=== PATIENT | male | born 1975 | race Caucasian/White ===

== ENCOUNTER 2020-09-16 10:02 | Emergency (ER) | payer OTHER, SELFPAY ==
--- NOTE | ~2020-09-16 | XR_ITS ---
XR foot RT min 3V 09/16/2020 10:25 INDICATION: Right foot pain PROCEDURE: 4 views right foot COMPARISON: No prior studies for comparison. FINDINGS: Fracture, dislocation or subluxation is not identified. Lisfranc joint intact. The soft tis sues appear within normal limits. No foreign bodies are identified. IMPRESSION: 1: NO ACUTE BONE OR JOINT ABNORMALITY IDENTIFIED. Reviewed, dictated and finalized at location B. 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
--- NOTE | 2020-09-16 10:18 | ED.LOWEXIN ---
HPI - Extremity Injury (Lower) General Chief Complaint: Extremity Injury, Lower Stated Complaint: right foot injury Time Seen by Provider: 09/16/20 10:18 Source: patient and RN notes reviewed History of Present Illness HPI Narrative: Patient is a 45-year-old male who presents the urgent care with complaints of right foot pain. 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 Patient states that the player had a soccer cleat on as well as himself. Patient states he immediately elevated and put ice on the foot which helped to decrease the immediate swelling. Patient states the pain radiates to the fourth and fifth digits of the right foot. Reports of increased pain with ambulation/weightbearing activity. Patient is also taking Advil for the pain with mild relief. No other acute complaints or injuries. No acute distress noted. Patient aware of the plan of care. Some parts of this dictation were generated by voice recognition software and may contain typographical and/or grammatical inaccuracies. Related Data Home Medications Medication Instructions Recorded Confirmed No Home Medications 09/16/20 09/16/20 Allergies Allergy/AdvReac Type Severity Reaction Status Date / Time No Known Allergies Allergy Verified 09/16/20 10:19 Review of Systems Review of Systems: Narrative: CONSTITUTIONAL: Denies fever, chills, or sweats. EYES: Denies visual changes, redness, or discharge. ENT: Denies rhinorrhea, congestion, sore throat, or otalgia. CARDIOVASCULAR: Denies chest pain, palpitations, or edema. RESPIRATORY: Denies cough or dyspnea. GASTROINTESTINAL: Denies abdominal pain, nausea, vomiting, or diarrhea. GENITOURINARY: Denies dysuria or hematuria. SKIN: Denies rash or itching. MUSCULOSKELETAL: Reports of right foot pain NEUROLOGIC: Denies headache, numbness, or weakness. All other systems reviewed are negative, except as documented in HPI. PMFSH Family History Family History (System 04/06/20 @ 10:37 by Caitlyn Medina) Father Diabetes mellitus Hypertension Family history of elevated blood lipids Mother Diabetes mellitus Hypertension Other Carcinoma of colon Social History Social History (System 04/06/20 @ 10:37 by Caitlyn Medina) Smoking status: Never smoker Smoking end date: 10/14/06 Alcohol intake: current Comments At the time of my signature, I reviewed and agree with the nursing past medical, surgical, social, and family history. There is no relevant family history pertinent to the patient complaint. Exam Narrative: Exam Narrative: GENERAL: This is a well-nourished, well-developed patient, in no apparent distress. HEAD: normocephalic, atraumatic. EYES: PERRL. Sclera clear/white. Vision is grossly intact. EARS: External ears normal NOSE: External nose normal with no obvious nasal discharge, nares without redness, no rhinorrhea. THROAT: Mucous membranes moist NECK: Neck supple SKIN: 0.25 cm subungual hematoma to the right great toe. Warm, intact with no suspicious lesions or rash, good texture and turgor. NEURO: awake, alert, and oriented to person, place and time. There were no obvious focal neurologic abnormalities. EXTREMITIES: Mild ecchymosis and very mild edema noted to the lateral aspect of the right foot with mild tenderness. Range of motion to right lower extremity within normal limits. Notable pain with complete weightbearing activity/ambulation. Capillary refill less than 2 seconds to right lower extremity with positive strong right pedal pulse. Course Vital Signs Vital signs: Vital Signs Temperature 98.1 F 09/16/20 10:19 Pulse Rate 90 09/16/20 10:19 Respiratory Rate 20 09/16/20 10:19 Blood Pressure 122/82 09/16/20 10:19 Pulse Oximetry 99 09/16/20 10:19 Temperature 98.1 F 09/16/20 10:19 Pulse Rate 90 09/16/20 10:19 Respiratory Rate 20 09/16/20 10:19 Blood Pressure 122/
[2020-09-16 10:19] VITALS: BP 122/82; PULSE 90; RESP 20; TEMP 36.7; O2SAT 99
== END 2020-09-16 10:43 | disposition home or self-care (01) ==
PROVIDERS: Emergency Provider Nurse Practitioner Family; PCP Family Medicine
DX: S90.31XA Contusion of right foot, initial encounter (principal); W51.XXXA Accidental striking against or bumped into by another person, initial encounter; Y93.66 Activity, soccer
CPT/HCPCS: 73630; 99213; G0463

== ENCOUNTER 2020-11-02 06:54 | Outpatient (NON) | payer OTHER, SELFPAY ==
[2020-11-02 21:57] LABS: SARS-CoV-2 RNA PCR Positive
== END 2020-11-02 06:55 ==
LOC: ANHCOVIDDT 06:59
PROVIDERS: PCP Family Medicine; Visit Provider Family Medicine
DX: U07.1 COVID-19 (principal)
CPT/HCPCS: C9803; U0003; U0005

== ENCOUNTER 2021-06-23 08:37 | Outpatient (CLI) | payer OTHER, SELFPAY ==
--- NOTE | 2021-06-23 08:51 | ECHO_ITS ---
Patient Info Name: Russell Conti Age: 45 years : 1975 Gender: Male Ht: 70 in Wt: 205 lbs BSA: 2.17 m2 HR: 68 bpm BP: 135 / 94 mmHg Heart Rhythm: Sinus Rhythm Exam Date: 06/23/2021 9:20 AM Exam Location: [facility] Patient Status: Outpatient Admit Date: 06/23/2021 Staff Ordering Physician: Catrachita Torres MD Quantitative Researcher: Yarelis Lema RDCS Attending Provider: Catrachita Torres MD Referring Physician: Melissa ZUÑIGA; Exam Type: CA echo doppler color flow Study Info Indications - FATIGUE, OTHER GENERAL SYMPTOMS AND SIGNS Complete two-dimensional, color flow and Doppler transthoracic echocardiogram is performed. Summary 1. Complete two-dimensional, color flow and Doppler transthoracic echocardiogram is performed. 2. Left ventricular chamber dimension is mildly enlarged. 3. Left ventricular systolic function is moderately reduced, estimated at 40-45%. 4. Left ventricular septal wall motion is abnormal with septal motion related to bundle branch block. 5. The left ventricular diastolic function is grade I diastolic dysfunction. 6. E/e' 7 is not elevated. 7. Left atrial chamber dimension is mildly enlarged. 8. There is trace mitral valve regurgitation. 9. There is trace tricuspid valve regurgitation. 10. No pulmonary hypertension, estimated pulmonary arterial systolic pressure is 18 mmHg. Left Ventricle E/e' 7 is not elevated. Left ventricular chamber dimension is mildly enlarged. Left ventricular systolic function is moderately reduced, estimated at 40-45%. Left ventricular septal wall motion is abnormal with septal motion related to bundle branch block. The left ventricular diastolic function is grade I diastolic dysfunction. Right Ventricle Right ventricular systolic function is normal and with normal TAPSE 2.2 cm. Right ventricular chamber dimension is normal. Left Atria Left atrial chamber dimension is mildly enlarged. Right Atria Right atrial chamber dimension is normal. Aortic Valve The aortic valve is trileaflet. There is no aortic valve stenosis. There is no aortic valve regurgitation. Pulmonic Valve There is no pulmonic regurgitation. Mitral Valve There is no mitral valve stenosis. There is trace mitral valve regurgitation. Tricuspid Valve There is trace tricuspid valve regurgitation. No pulmonary hypertension, estimated pulmonary arterial systolic pressure is 18 mmHg. Pericardium/Pleural There is no pericardial effusion. Inferior Vena Cava Normal inferior vena cava with >50% collapse upon inspiration consistent with normal right atrial pressure, 5 mmHg. Aorta The aortic root size at the sinus of Valsalva is normal. Left Ventricular Outflow Tract Name Value Normal LVOT 2D LVOT Diameter 2.1 cm LVOT Doppler LVOT Peak Gradient 2 mmHg LVOT Mean Gradient 1 mmHg LVOT VTI 17 cm LVOT VTI/AV VTI Ratio 0.7 LVOT Stroke Volume 61 ml LVOT CO 3.1 l/min
== END 2021-06-23 08:38 | disposition home or self-care (01) ==
PROVIDERS: PCP Family Medicine; Visit Provider Family Medicine
DX: R68.89 Other general symptoms and signs (principal); I51.7 Cardiomegaly; I44.7 Left bundle-branch block, unspecified; I51.9 Heart disease, unspecified; Z86.16 Personal history of COVID-19
CPT/HCPCS: 93306

== ENCOUNTER → 2021-09-25 11:47 | Outpatient (CLI) | payer OTHER, SELFPAY ==
--- NOTE | ~2021-09-25 | XR_ITS ---
XR knee RT min 4V 09/25/2021 12:13 Indication: Right knee pain Procedure: 4 views right knee Comparison: No prior studies for comparison. Findings: No fracture, subluxation or dislocation. No significant joint space narrowing. Small joint effusion. No foreign bodies. Impression: 1: Small joint effusion. Reviewed, dictated and finalized at location A. IAL EVENTS DIRECTOR Impression: 1: Small joint effusion.
== END ==
PROVIDERS: PCP Family Medicine; Visit Provider Physician Assistant
DX: M25.561 Pain in right knee (principal); M25.461 Effusion, right knee
CPT/HCPCS: 73564

== ENCOUNTER 2022-06-05 09:50 | Outpatient (CLI) | payer OTHER, SELFPAY ==
[2022-06-05 18:58] LABS: Basophils Percent Auto 0.7 % (0.2-1.2); Eosinophils Absolute Auto 0.3 K/mm3 (0-0.3); Eosinophils Percent Auto 4.2 % (0-4.4); Hematocrit 50.4 % (42.0-52.0); Hemoglobin 16.5 g/dL (14.0-18.0); Immature Granulocyte Absolute 0.01 K/mm3 (0.00-0.031); Immature Granulocyte Percent A 0.2 % (0-0.5); Lymphocytes Absolute Auto 2.32 K/mm3 (0.9-3.2); Lymphocytes Percent Auto 37.8 % (18.3-44.2); Mean Corpuscular HGB Conc 32.7 g/dl (32-36); Mean Corpuscular Hemoglobin 29.1 pg (26-34); Mean Corpuscular Volume 88.9 fl (80-100); Mean Platelet Volume 11.1 fl (7.4-10.4); Monocytes Absolute Auto 0.5 K/mm3 (0.1-0.6); Monocytes Percent Auto 8.8 % (2.6-8.5); Neutrophils Percent Auto 48.3 % (45.5-73.1); Platelet Count Result 201 k/mm3 (150-375); Red Blood Count 5.67 M/mm3 (4.6-6.20); White Blood Count 6.1 K/mm3 (4.5-10.0)
[2022-06-05 19:02] LABS: Alanine Aminotransferase 26 U/L (6-50); Albumin Level 4.6 g/dL (3.5-5.1); Alkaline Phosphatase 68 U/L (38-126); Anion Gap 8 mmol/L (8-16); Aspartate Amino Transferase 34 U/L (17-59); Bilirubin,Total 0.5 mg/dL (0.2-1.3); Blood Urea Nitrogen 16 mg/dL (9-20); Calcium 9.1 mg/dL (8.4-10.2); Carbon Dioxide 31 mmol/L (22-30); Chloride 98 mmol/L (98-107); Cholesterol 251 mg/dL (0-200); Estimated Glomerular Filt Rate > 60; Glucose 102 mg/dL (65-110); HDL Direct 36 mg/dL; Potassium 4.5 mmol/L (3.4-5.0); Sodium 137 mmol/L (137-145); Triglycerides 170 mg/dL (<150)
[2022-06-05 19:19] LABS: LDL Cholesterol Direct 143 mg/dL
== END 2022-06-05 09:51 | disposition home or self-care (01) ==
LOC: ANHGOSHLAB 09:53
PROVIDERS: PCP Family Medicine; Visit Provider Family Medicine
DX: Z00.00 Encounter for general adult medical examination without abnormal findings (principal)
CPT/HCPCS: 36415; 80053; 80061; 85025

== ENCOUNTER 2022-07-18 01:32 | Day surgery (SDC) | payer OTHER, SELFPAY ==
[2022-07-02 14:47] VITALS: BMI 29.7
--- NOTE | 2022-07-02 14:58 | PC.NURSE ---
PT INSTRUCTED NOT TO TAKE MAGNESIUM CITRATE PER BOWEL PREP INSTRUCTIONS DUE TO RECALL, PT STATES UNDERSTANDING.
[2022-07-18 06:24] VITALS: BP 112/68; PULSE 72; RESP 18; TEMP 36.4; O2SAT 100; BMI 29.7
[2022-07-18] MEDS: LACTATED RINGERS 1,000 ML 150 ML IV CONT (06:35)
--- NOTE | 2022-07-18 07:13 | P.PNAN_ITS ---
Anes - Initial Pre Proc Eval Procedure: Operation Date: 07/18/22 07:30 Proposed Procedures p Screening Colonoscopy - Bo Uribe MD Date/Time: 07/18/22 07:13 Surgeon: Bo Uribe MD Pre Op Diagnosis: family hx colon ca, neoplasm screening Patient Data Age: 46 Gender: M Height: 1.78 m Weight: 206 kg Last Vital Signs Temp 36.4 C L 07/18/22 06:24 Pulse 72 07/18/22 06:24 Resp 18 07/18/22 06:24 BP 112/68 07/18/22 06:24 Pulse Ox 100 07/18/22 06:24 O2 Del Method Room Air 07/18/22 06:24 Allergies Allergy/AdvReac Type Severity Reaction Status Date / Time No Known Allergies Allergy Verified 07/02/22 14:45 Home Medications Medication Instructions Recorded Confirmed Type lisinopril 20 mg tablet 20 mg PO DAILY 09/25/21 07/02/22 History metoprolol succinate 25 mg 12.5 mg PO DAILY 09/25/21 07/02/22 History tablet,extended release 24 hr omeprazole 40 mg capsule,delayed 40 mg PO DAILY #90 caps 06/05/22 07/02/22 Rx release loratadine 10 mg tablet (Claritin) 10 mg PO DAILY 07/02/22 07/02/22 History Patient hx anesthesia problems: none Family hx anesthesia problems: none Results Review: All pre-operative results and documents have been reviewed as part of the pre- operative evaluation. [facility], [facility] Past Medical History Medical History Actinic keratosis Allergic rhinitis Generalized anxiety disorder Lumbar sprain Personal history of tobacco use Syncope and collapse Traumatic tattoo Umbilical hernia without obstruction or gangrene Family History Family History Father Diabetes mellitus Hypertension Family history of elevated blood lipids Mother Diabetes mellitus Hypertension Other Carcinoma of colon Social History Social History (Updated 06/05/22 @ 09:18 by Catrachita Torres MD) Smoking status: Former smoker Smokeless tobacco user: chewing tobacco Smoking end date: 10/14/06 Additional smoking assessment comments: CHEWED TOBACCO X15 YEARS, QUIT 2009 Alcohol intake: current Drinks per week: 4 Substance use: never Substance use type: does not use Living arrangements: with family Spiritual care concerns: No Anes - Eval Final PreProcedure Day of Procedure 07/18/22 07:13 Patient weight: overweight Heart: regular rate and rhythm Lungs: clear to auscultation Airway: Mallampati scale class II Neurological: alert and oriented Last oral intake: >/= 8 hours ASA classification: III Emergent: no Anesthetic plan: proceed Anesthesia type and monitoring: general GIVS and standard monitoring Results Review: All pre-operative results and documents have been reviewed as part of the pre- operative evaluation. Informed Consent: The patient's anesthetic plan and its attendant risks and benefits were discussed with the patient/family/POA. Questions were solicited and answers prov ided to the satisfaction of the patient/family/POA.
--- NOTE | 2022-07-18 07:22 | PM.HPGS ---
History of Present Illness History of Present Illness Consent: Risks, benefits, and alternatives have been discussed and questions answered. Patient agrees to proceed with procedure. Chief complaint: family hx colon ca, neoplasm screening Narrative: Russell Conti Jr. is a 46 year old male here for first screening colonoscopy Review of Systems Constitutional: Constitutional: Denies headache(s) and Denies weakness Eyes: Eyes: Denies blurry vision ENT: Reports Normal hearing present, Denies headache(s) and Denies neck pain Cardiovascular: Cardiovascular: Denies chest pain and Denies dyspnea Respiratory: Respiratory: Denies dyspnea Gastrointestinal: Gastrointestinal: Reports no additional gastrointestinal complaints Genitourinary: Genitourinary: Denies dysuria Musculoskeletal: Musculoskeletal: Denies neck pain Integumentary/Breasts: Skin/Breast: Denies dry skin Neurologic: Reports Normal hearing present, Denies headache(s) and Denies weakness Psychiatric: Psychiatric: Denies anxiety Endocrine: Endocrine: Denies change in body appearance Hematologic/Lymphatic: Hematologic/Lymphatic: Denies easy bleeding Allergic/Immunologic: Allergic/Immunologic: Denies urticaria PMFSH Past Medical History Medical History (Updated 07/18/22 @ 07:22 by Bo Uribe MD) Actinic keratosis Allergic rhinitis Colon cancer screening Generalized anxiety disorder Lumbar sprain Personal history of tobacco use Syncope and collapse Traumatic tattoo Umbilical hernia without obstruction or gangrene Family History Family History Father Diabetes mellitus Hypertension Family history of elevated blood lipids Mother Diabetes mellitus Hypertension Other Carcinoma of colon Social History Social History (Updated 06/05/22 @ 09:18 by Catrachita Torres MD) Smoking status: Former smoker Smokeless tobacco user: chewing tobacco Smoking end date: 10/14/06 Additional smoking assessment comments: CHEWED TOBACCO X15 YEARS, QUIT 2009 Alcohol intake: current Drinks per week: 4 Substance use: never Substance use type: does not use Living arrangements: with family Spiritual care concerns: No Meds Home Medications and Allergies Home Medications Medication Instructions Recorded Confirmed Type lisinopril 20 mg tablet 20 mg PO DAILY 09/25/21 07/02/22 History metoprolol succinate 25 mg 12.5 mg PO DAILY 09/25/21 07/02/22 History tablet,extended release 24 hr omeprazole 40 mg capsule,delayed 40 mg PO DAILY #90 caps 06/05/22 07/02/22 Rx release loratadine 10 mg tablet (Claritin) 10 mg PO DAILY 07/02/22 07/02/22 History Allergies Allergy/AdvReac Type Severity Reaction Status Date / Time No Known Allergies Allergy Verified 07/02/22 14:45 Vital Signs Vital Signs - 24 hr 07/18/22 06:24 Temperature 97.5 F L Pulse Rate 72 Respiratory Rate 18 Blood Pressure 112/68 Pulse Oximetry 100 Oxygen Delivery Room Air Exam Const: General: comfortable and no acute distress HENMT: Face/Nose/Sinus: Normal nares present Eyes: General: appearance normal, both eyes and all related structures Neck: Neck: no JVD Resp: Auscultation: clear to auscultation bilaterally Cardio: Rate: regular rate Rhythm: regular rhythm GI: Inspection: non-distended GI Palp: Yes Soft to palpation Skin: General skin exam: normal color Neuro: General: gait normal Speech: normal speech Extrem: General: normal to inspection Psych: Mental Status: mental status grossly normal Assessment and Plan Assessment and plan (1) Colon cancer screening: Code(s): Z12.11 - Encounter for screening for malignant neoplasm of colon Status: Acute Assessment and Plan: colonoscopy
[2022-07-18 07:41] VITALS: BP 115/81; PULSE 100; RESP 23; O2SAT 97
[2022-07-18 07:51] VITALS: BP 112/78; PULSE 74; RESP 18; O2SAT 97
[2022-07-18 08:01] VITALS: BP 140/91; PULSE 75; RESP 20; O2SAT 100
== END 2022-07-18 08:10 | disposition home or self-care (01) ==
PROVIDERS: PCP Family Medicine; Visit Provider Internal Medicine Gastroenterology
PROC: 0DJD8ZZ Inspection of Lower Intestinal Tract, Via Natural or Artificial Opening Endoscopic (ICD-10-PCS; CPT 45378; principal; 2022-07-18 07:30)
DX: Z12.11 Encounter for screening for malignant neoplasm of colon (principal); Z80.0 Family history of malignant neoplasm of digestive organs; K64.8 Other hemorrhoids; K63.5 Polyp of colon; F41.1 Generalized anxiety disorder; L57.0 Actinic keratosis; Z87.891 Personal history of nicotine dependence
CPT/HCPCS: 45385; 88305; J2704; J7120

== ENCOUNTER 2022-07-31 11:33 | Emergency (ER) | payer OTHER, SELFPAY ==
[2022-07-31 12:05] VITALS: BP 124/76; PULSE 95; RESP 12; TEMP 36.6; O2SAT 98
--- NOTE | 2022-07-31 13:04 | ED.URI ---
HPI - URI/Sore Throat General Chief Complaint: Upper Respiratory Infection Stated Complaint: cough,nasal congestion Source: patient Mode of arrival: ambulatory Limitations: no limitations History of Present Illness HPI Narrative: This is a 46 year old male that comes in with a sore throat and had a fever last night , coughing and shortness of breath two negative COVID test very fatigue barely able to stay up yesterday due to exhaustion . He had to leave work early Related Data Home Medications Medication Instructions Recorded Confirmed lisinopril 20 mg tablet 20 mg PO DAILY 09/25/21 07/02/22 metoprolol succinate 25 mg 12.5 mg PO DAILY 09/25/21 07/02/22 tablet,extended release 24 hr loratadine 10 mg tablet (Claritin) 10 mg PO DAILY 07/02/22 07/02/22 Allergies Allergy/AdvReac Type Severity Reaction Status Date / Time No Known Allergies Allergy Verified 07/02/22 14:45 Review of Systems Review of Systems: cough congestion , headache and fatigue All systems reviewed & are unremarkable except as noted in HPI and below PMFSH Past Medical History Medical History Actinic keratosis Allergic rhinitis Colon cancer screening Generalized anxiety disorder Lumbar sprain Personal history of tobacco use Syncope and collapse Traumatic tattoo Umbilical hernia without obstruction or gangrene Family History Family History Father Diabetes mellitus Hypertension Family history of elevated blood lipids Mother Diabetes mellitus Hypertension Other Carcinoma of colon Social History Social History Smoking status: Former smoker Smokeless tobacco user: chewing tobacco Smoking end date: 10/14/06 Additional smoking assessment comments: CHEWED TOBACCO X15 YEARS, QUIT 2009 Alcohol intake: current Drinks per week: 4 Substance use: never Substance use type: does not use Spiritual care concerns: No Exam Narrative: GENERAL:Ill-appearing, well-nourished, and in no acute distress. HEAD:Normocephalic, atraumatic. EYES: PERRLA ENT: Nares clear, no rhinorrhea or epistaxis. Mucous membranes moist. Copious secretions. Erythema CHEST: Clear to diminished in the lower right lobe auscultation. No respiratory distress. HEART: Regular rate and rhythm. Normal peripheral pulses. ABDOMEN: Soft, nontender, nondistended, normal active bowel sounds. EXTREMITIES: Normal range of motion. No edema. SKIN: Warm, dry, no rash. NEURO: No focal deficits. Alert and oriented x3. Course Course Level of Care: Express Care Visit Vital Signs Vital signs: Vital Signs Temperature 97.9 F 07/31/22 12:05 Pulse Rate 95 07/31/22 12:05 Respiratory Rate 12 07/31/22 12:05 Blood Pressure 124/76 07/31/22 12:05 Pulse Oximetry 98 07/31/22 12:05 Oxygen Delivery Room Air 07/31/22 12:05 Temperature 97.9 F 07/31/22 12:05 Pulse Rate 95 07/31/22 12:05 Respiratory Rate 12 07/31/22 12:05 Blood Pressure 124/76 07/31/22 12:05 Pulse Oximetry 98 07/31/22 12:05 Oxygen Delivery Room Air 07/31/22 12:05 MDM - URI/Sore Throat Differential Diagnosis Differential diagnosis: Likely upper respiratory infection, otitis media, sinusitis, viral infection, bronchitis and influenza Lab Data Labs: Lab Results 07/31/22 Range/Units 12:36 POC SARS CoV-2 Ag Negative (Negative) Influenza A Screen Negative Reference Range: Negative Influenza B Screen Negative Reference Range: Negative Discharge Plan Discharge Clinical Impression: Upper respiratory infection, Viral infection Patient Disposition: Home, Self-Care Condition: Stable Instructions: Antibiotic Form, Pharyngitis (ED), Upper Respir
== END 2022-07-31 13:18 | disposition home or self-care (01) ==
PROVIDERS: Emergency Provider Nurse Practitioner Family; PCP Family Medicine
DX: J06.9 Acute upper respiratory infection, unspecified (principal); B34.9 Viral infection, unspecified; Z20.822 Contact with and (suspected) exposure to COVID-19; Z87.891 Personal history of nicotine dependence
CPT/HCPCS: 87426; 87804; 99213; C9803; G0463

== ENCOUNTER 2022-09-27 11:30 | Emergency (ER) | payer OTHER, SELFPAY ==
[2022-09-27 11:38] VITALS: BP 115/70; PULSE 89; RESP 18; TEMP 36.9; O2SAT 99
--- NOTE | 2022-09-27 11:57 | ED.URI ---
HPI - URI/Sore Throat General Chief Complaint: Upper Respiratory Infection Stated Complaint: flu like sx Time Seen by Provider: 09/27/22 11:40 Source: patient, RN notes reviewed and old records reviewed Mode of arrival: ambulatory Limitations: no limitations History of Present Illness HPI Narrative: 47-year-old presents to the [facility] with flu-like symptoms for 2 days. patient reports sinus drainage some sore throat cough. No known sick contacts Related Data Home Medications Medication Instructions Recorded Confirmed lisinopril 20 mg tablet 20 mg PO DAILY 09/25/21 09/27/22 metoprolol succinate 25 mg 12.5 mg PO DAILY 09/25/21 09/27/22 tablet,extended release 24 hr loratadine 10 mg tablet (Claritin) 10 mg PO DAILY 07/02/22 09/27/22 Allergies Allergy/AdvReac Type Severity Reaction Status Date / Time No Known Allergies Allergy Verified 09/27/22 11:51 Review of Systems Review of Systems: All systems reviewed & are unremarkable except as noted in HPI and below Constitutional: Constitutional: Reports as per HPI Eyes: Eyes: Reports no additional eye complaints ENT: Reports as per HPI and Reports sore throat Cardiovascular: Cardiovascular: Reports no additional cardiovascular complaints, Denies chest pain and Denies dyspnea Respiratory: Respiratory: Reports as per HPI, Reports no additional respiratory complaints, Denies chest congestion, Reports cough and Denies dyspnea Gastrointestinal: Gastrointestinal: Reports no additional gastrointestinal complaints, Denies abdominal pain, Denies nausea and Denies vomiting Musculoskeletal: Musculoskeletal: Reports no additional musculoskeletal complaints Integumentary/Breasts: Skin/Breast: Reports system reviewed and no additional complaints, except as docu Neurologic: Reports system reviewed and no additional complaints, except as documented Psychiatric: Psychiatric: Reports no additional psychiatric complaints Allergic/Immunologic: Allergic/Immunologic: Reports no additional allergic/immunologic complaints PMF Past Medical History Medical History Actinic keratosis Allergic rhinitis Colon cancer screening Generalized anxiety disorder Lumbar sprain Personal history of tobacco use Syncope and collapse Traumatic tattoo Umbilical hernia without obstruction or gangrene Family History Family History Father Diabetes mellitus Hypertension Family history of elevated blood lipids Mother Diabetes mellitus Hypertension Other Carcinoma of colon Social History Social History Smoking status: Former smoker Smokeless tobacco user: chewing tobacco Smoking end date: 10/14/06 Additional smoking assessment comments: CHEWED TOBACCO X15 YEARS, QUIT 2009 Alcohol intake: current Drinks per week: 4 Substance use: never Substance use type: does not use Spiritual care concerns: No Comments At the time of my signature, I reviewed and agree with the nursing past medical, surgical, social, and family history. There is no relevant family history pertinent to the patient complaint. Exam Const: General: cooperative, healthy appearing, comfortable, no acute distress, well developed, alert and well nourished Nutritional Appearance: well nourished Orientation/consciousness: patient oriented x3 Limitations: no limitations HENMT: Head: normal to inspection Ears: hearing grossly normal bilaterally and external ears normal Face/Nose/Sinus: Normal external nose present, Normal nares present, Normal nasal mucous membranes and turbinates present and normal facial exam Face and sinus: normal facial exam Mouth: Yes Normal oral and palatal mucosa present, Yes lip normal and Yes moist mucous membranes Throat: posterior oropharynx normal, uvula midline and postnasal drainage Eyes: General: appearance n
== END 2022-09-27 12:29 | disposition home or self-care (01) ==
PROVIDERS: Emergency Provider Nurse Practitioner; PCP Family Medicine
DX: J06.9 Acute upper respiratory infection, unspecified (principal); Z20.822 Contact with and (suspected) exposure to COVID-19; Z87.891 Personal history of nicotine dependence
CPT/HCPCS: 87426; 87804; 99213; C9803; G0463

== ENCOUNTER 2023-06-06 09:52 | Outpatient (CLI) | payer OTHER, SELFPAY ==
[2023-06-06 17:11] LABS: Alanine Aminotransferase 52 U/L (6-50); Albumin Level 4.4 g/dL (3.5-5.1); Alkaline Phosphatase 67 U/L (38-126); Anion Gap 4 mmol/L (8-16); Aspartate Amino Transferase 36 U/L (17-59); Bilirubin,Total 0.7 mg/dL (0.2-1.3); Blood Urea Nitrogen 14 mg/dL (9-20); Calcium 9.3 mg/dL (8.4-10.2); Carbon Dioxide 29 mmol/L (22-30); Chloride 100 mmol/L (98-107); Cholesterol 250 mg/dL (0-200); Estimated Glomerular Filt Rate > 60; Glucose 93 mg/dL (65-110); HDL Direct 35 mg/dL; Potassium 4.1 mmol/L (3.4-5.0); Sodium 133 mmol/L (137-145); Triglycerides 237 mg/dL (<150)
[2023-06-06 17:22] LABS: LDL Cholesterol Direct 141 mg/dL
[2023-06-06 17:41] LABS: Basophils Absolute Auto 0.1 K/mm3 (0.0-0.1); Basophils Percent Auto 0.8 % (0.2-1.2); Eosinophils Absolute Auto 0.2 K/mm3 (0-0.3); Eosinophils Percent Auto 3.6 % (0-4.4); Hemoglobin 15.9 g/dL (14.0-18.0); Immature Granulocyte Absolute 0.01 K/mm3 (0.00-0.031); Immature Granulocyte Percent A 0.2 % (0-0.5); Lymphocytes Absolute Auto 2.08 K/mm3 (0.9-3.2); Lymphocytes Percent Auto 32.5 % (18.3-44.2); Mean Corpuscular HGB Conc 33.8 g/dl (32-36); Mean Corpuscular Hemoglobin 29.4 pg (26-34); Mean Corpuscular Volume 86.9 fl (80-100); Mean Platelet Volume 11.3 fl (7.4-10.4); Monocytes Absolute Auto 0.6 K/mm3 (0.1-0.6); Monocytes Percent Auto 9.8 % (2.6-8.5); Neutrophils Absolute Auto 3.4 K/mm3 (1.3-6.7); Neutrophils Percent Auto 53.1 % (45.5-73.1); Platelet Count Result 209 k/mm3 (150-375); Red Blood Count 5.41 M/mm3 (4.6-6.20); Red Cell Distribution Width 11.5 % (11.5-14.5); White Blood Count 6.4 K/mm3 (4.5-10.0)
== END 2023-06-06 09:53 | disposition home or self-care (01) ==
PROVIDERS: PCP Family Medicine; Visit Provider Family Medicine
DX: Z00.00 Encounter for general adult medical examination without abnormal findings (principal)
CPT/HCPCS: 36415; 80053; 80061; 85025

== ENCOUNTER 2024-06-05 08:02 | Outpatient (CLI) | payer OTHER, SELFPAY ==
[2024-06-05 13:56] LABS: Basophils Percent Auto 0.7 % (0.2-1.2); Eosinophils Absolute Auto 0.2 K/mm3 (0-0.3); Eosinophils Percent Auto 3.3 % (0-4.4); Hematocrit 46.9 % (42.0-52.0); Hemoglobin 15.6 g/dL (14.0-18.0); Immature Granulocyte Absolute 0.02 K/mm3 (0.00-0.031); Immature Granulocyte Percent A 0.3 % (0-0.5); Lymphocytes Absolute Auto 1.77 K/mm3 (0.9-3.2); Lymphocytes Percent Auto 29.5 % (18.3-44.2); Mean Corpuscular HGB Conc 33.3 g/dl (32-36); Mean Corpuscular Hemoglobin 29.8 pg (26-34); Mean Corpuscular Volume 89.5 fl (80-100); Mean Platelet Volume 11.4 fl (7.4-10.4); Monocytes Absolute Auto 0.5 K/mm3 (0.1-0.6); Monocytes Percent Auto 7.5 % (2.6-8.5); Neutrophils Absolute Auto 3.5 K/mm3 (1.3-6.7); Neutrophils Percent Auto 58.7 % (45.5-73.1); Platelet Count Result 216 k/mm3 (150-375); Red Blood Count 5.24 M/mm3 (4.6-6.20); Red Cell Distribution Width 11.6 % (11.5-14.5)
[2024-06-05 14:22] LABS: Alanine Aminotransferase 31 U/L (6-50); Albumin Level 4.6 g/dL (3.5-5.1); Alkaline Phosphatase 72 U/L (38-126); Anion Gap 10 mmol/L (4-12); Aspartate Amino Transferase 56 U/L (17-59); Bilirubin,Total 0.4 mg/dL (0.2-1.3); Blood Urea Nitrogen 16 mg/dL (9-20); Calcium 9.6 mg/dL (8.4-10.2); Carbon Dioxide 30 mmol/L (22-30); Chloride 98 mmol/L (98-107); Cholesterol 238 mg/dL (0-200); Estimated Glomerular Filt Rate > 60; Glucose 84 mg/dL (65-110); HDL Direct 36 mg/dL; Potassium 4.7 mmol/L (3.4-5.0); Sodium 138 mmol/L (137-145); Triglycerides 189 mg/dL (<150)
[2024-06-05 14:33] LABS: LDL Cholesterol Direct 135 mg/dL
[2024-06-05 14:52] LABS: Prostate Specific Antigen 0.7 ng/mL (< OR = 4.0)
[2024-06-05 15:21] LABS: Vitamin D 25 Hydroxy 29.9 ng/mL
[2024-06-05 16:00] LABS: Hemoglobin A1C 5.6 % (<5.7)
[2024-06-09 20:53] LABS: Testosterone Free 57.3 pg/mL (46.0-224.0); Testosterone Total 316 ng/dL (250-1100)
== END 2024-06-05 08:03 | disposition home or self-care (01) ==
LOC: ANHGOSHLAB 08:03
PROVIDERS: PCP Family Medicine; Visit Provider Student in an Organized Health Care Education/Training Program
DX: E78.2 Mixed hyperlipidemia (principal); R53.83 Other fatigue; N52.9 Male erectile dysfunction, unspecified; T50.B95A Adverse effect of other viral vaccines, initial encounter; R73.03 Prediabetes
CPT/HCPCS: 36415; 80053; 80061; 82306; 82607; 83036; 84153; 84402; 84403; 84443; 85025

== ENCOUNTER 2024-06-11 07:21 | Outpatient (CLI) | payer OTHER, SELFPAY ==
[2024-06-15 17:03] LABS: Testosterone Total 391 ng/dL (250-1100)
== END 2024-06-11 07:22 | disposition home or self-care (01) ==
LOC: ANHLAB 07:23
PROVIDERS: PCP Family Medicine; Visit Provider Family Medicine
DX: R79.89 Other specified abnormal findings of blood chemistry (principal)
CPT/HCPCS: 36415; 84403

== ENCOUNTER 2024-09-16 09:26 | Outpatient (CLI) | payer OTHER, SELFPAY ==
[2024-10-09 15:01] VITALS: BMI 30.1
--- NOTE | 2024-10-09 15:01 | P.SLEEP_ITS ---
Sleep Study - Home Unattended Date of Study: 09/16/24 Ordering Provider: ANTHONY CruzC Interpreting Provider: Caitlyn Sousa, DO Home Sleep Study Type: Watch PAT Height: 1.78 m Weight: 95.254 kg Body Mass Index: 30.1 Neck Circumference (inches): 17.5 [place]: 5 Reason for Sleep Study Snoring, difficulty sleeping Sleep History The patient is a 49-year-old male that had a sleep study ordered by his primary care for evaluation of sleep apnea. The patient admits to snoring loudly, excessive daytime sleepiness in trouble falling / soon asleep. The patient denies interruptions in breathing while asleep. He does choke or gasp at night. He does have trouble breathing on his back. He does have morning headaches. He does have a dry or sore mouth/ throat in the morning. He denies nocturnal heartburn. He denies nocturia. He does have difficulty returning to sleep 50 wakes up throughout the night. He denies hypnotic or sedative use. He denies feeling anxious about sleep. He does feel tired or sleepy during the day. He does feel tired in the morning. He does 7 urge to fall asleep during the day. He does feel drowsy while driving. He denies sleep paralysis, cataplexy and hypnagogic/ hypnopompic hallucinations. He does chondral grinds his teeth at night. He denies kicking or jerking his legs excessively. He does have a restless feeling in his legs. He denies having the urge to move his legs at night. The restless feeling does not get worse with rest but it does get better with activity. The restless feeling in his legs only occurs in the evening or at night time. It does not cause a disturbance in sleep. He goes to bed at 10:30 p.m. on work days and 11:30 p.m. on and stays off. It takes him 45 minutes to fall asleep on work days and 1 hour on his days off. He typically gets 6 hours of sleep per night. His sleep is somewhat restorative on his days off. He denies taking any planned naps. He denies dream enactment behavior. He denies sleep walking. He consumes 1-2 cups of caffeinated beverage per day. He denies tobacco use. He consumes 2 glasses 7 alcoholic beverage 1-2 nights per week. He exercises 1- 2 nights per week. [facility] Past Medical History Medical History Fatigue after COVID-19 vaccination Acute bronchitis Actinic keratosis Allergic rhinitis Generalized anxiety disorder Lumbar sprain Personal history of tobacco use Syncope and collapse Traumatic tattoo Umbilical hernia without obstruction or gangrene Family History Family History Father Diabetes mellitus Hypertension Family history of elevated blood lipids Mother Diabetes mellitus Hypertension Other Carcinoma of colon Social History Social History Smoking status: Former smoker Smokeless tobacco user: chewing tobacco Smoking end date: 10/14/06 Additional smoking assessment comments: CHEWED TOBACCO X15 YEARS, QUIT 2009 Alcohol intake: current Drinks per week: 4 Substance use: never Substance use type: does not use Do You Feel Safe in your Home?: Yes Lack of Transportation: No Lack of Food: Never True Current Housing: I Have Housing Concerned About Future Housing: No Difficulty Paying Gas/Electric Bills: No Difficulty Paying for Meds: No Education: Bachelor's Degree Difficulty w/ Childcare or Family Care: No Living arrangements: with family Spiritual care concerns: No Medications Home Medications ?Medication ?Instructions ?Recorded ?Confirmed ?Type cetirizine 10 mg tablet (Zyrtec) 10 mg PO DAILY PRN 06/06/23 06/04/24 History lisinopril 20 mg tablet 20 mg PO DAILY #90 tabs 09/07/24 Rx Sleep Procedure The sleep study was completed using BYTEGRID a technically adequate device with seven channels: peripheral arterial tone, actigraphy, body position, snore, respiratory movement, pulse oximetry, sleep staging, and heart rate. Prior to using the device, the patient received verbal and written instructions for its application and was provided with the help desk phone number for additional telephonic instruction with 24-hour availability of qualified personnel to answer questions. The study was scored using CMS guidelines. Sleep Architecture The total recording time is 6 hrs, 38 min. The total sleep time is 5 hrs, 44 min. Sleep latency is 23 minutes. REM latency is 95 minutes. The patient had 6 episodes of waking. Sleep architecture shows 15.1% deep sleep, 65.1% light sleep, and (as % Total Sleep Time) showed NREM (Light 65.1%; Deep 15.1%), and a 19.8% stage REM. The patient spent 89.1% of total sleep time in the supine position. Sleep efficiency was 86.43. Respiratory Analysis The overall AHI (pAHI 4%:) is 6.4. The central AHI is 0.2. The AHI was 7.4 in NREM and 2.7 in REM sleep. The AHI was 7.2 in Supine and 0.0 in Non-supine sleep. Percent of Mario Luna respirations is 0.0. Oximetry Data The oxygen desaturation index (ANTONETTE 4%:) is 6.2. The mean saturation is 93%, and the lowest saturation is 84%. Time spent with saturation < 88% is 0.6 minutes. Snoring Profile Snoring average intensity is 41 dB. The patient snored above 45 decibels for 32.6 minutes, 9.5% of sleep time. Cardiac Profile The average pulse rate is 69 beats per minutes. The lowest pulse rate is 51 bpm. The highest pulse rate reported is 104 bpm. Atrial fibrillation was not detected. Premature beats occur <0.1 per minute. Assessment and Plan Assessment and Plan (1) ESTELITA (obstructive sleep apnea): Code(s): G47.33 - Obstructive sleep apnea (adult) (pediatric) Status: Acute Assessment and Plan: The patient had an overall AHI of 6.4 with desaturation down to 84%. This is consistent with mild sleep apnea. Due to the patient's cardiomyopathy, he qualifies for treatment. I recommend that the patient be prescribed Resmed AutoPAP 5-15 cm H2O, CPAP mask/filters/tubing and heated humidity. This should be used with all episodes of sleep.? Compliance should be reviewed within 31-90 days of starting therapy for usage greater than 4 hours per night greater than 70% of the nights. The patient should be asked about symptoms such as?excessive daytime sleepiness, quality of sleep, decreased nocturia, increased?mental functioning such as memory, mood, and concentration. Data The data obtained during this sleep study is adequate for interpretation. Certification This sleep study has been reviewed by a board certified sleep medicine physician.
== END 2024-09-17 13:26 | disposition home or self-care (01) ==
LOC: ANHCSM 09:34
PROVIDERS: PCP Family Medicine; Visit Provider Nurse Practitioner
DX: G47.33 Obstructive sleep apnea (adult) (pediatric) (principal)
CPT/HCPCS: 95800

== ENCOUNTER 2025-06-23 07:52 | Outpatient (CLI) | payer OTHER, SELFPAY ==
--- OUTSIDE RECORDS SUMMARY | 2025-06-23 08:07 | XMS_ITS | Clinical Summary ---
Author Organization [facility] Address [address] [place] [address] Care Team Providers Care Security Patrol Officer Name Role Phone Catrachita Torres MD Primary Care Provider [phone] Allergies No known active allergies Medications lisinopril 20 MG tablet 10/31/2021 Active metoprolol succinate ER 25 MG 24 hr tablet 10/31/2021 Act alejandra meloxicam (MOBIC) 15 MG tabletIndication s:Acute medial meniscal tear, right, subsequent encounter Take 1 tablet (15 mg total) by mouth daily. 30 tablet 2 12/05/2021 Active Active Problems Problem Noted Date Diagnosed Date Acute medial meniscal tear, right, subsequent en counter 12/06/2021 Assessment & Plan (12/06/2021 10:10 AM HR INTERN): We discussed the risks, benefits and alternatives. There are only 3 things to do for meniscal tears. Nothing, see if it gets better on its own. Conservative treatment of nonsteroidal anti-inflammatories, physical therapy, steroid injection, activity modification, TENS unit and bracing. Finally, diagnostic and operative arthroscopy with repair or partial meniscectomy. After going over the risks, benefits and alternatives patient will start with meloxicam 15 mg 1 daily and continue with home exercises. If no significant improvement he may consider steroid injection. Certainly knee arthroscopy is also on the table if there is no significant improvement. Follow-up in 6 weeks if needed. Chronic pain of right knee 11/09/2021 Assessment & Plan (11/09/2021 7:05 PM HR INTERN): Patient has failed nonsteroidal anti-inflammatories, physician directed exercises and activity modification. Pain still to the medial aspect of his right knee. Recommend MRI for further evaluation. Does have a previous history of medial meniscus Social History Tobacco Use Types Packs/Day Years Used Date Smoking Tobacco: Never Assessed Sex and Gender Information Value Date Recorded Sex Assigned at Not on file Legal Sex Male 8:58 AM HR INTERN Gender Identity Not on file Sexual Orientation Not on file Last Filed Vital Signs Vital Sign Reading Time Taken Comments Blood Pressure 110/62 12/05/2021 4:06 PM HR INTERN Pulse 80 12/05/2021 4:06 PM HR INTERN Temperature 36.2 C (97.2 F) 12/05/2021 4:06 PM HR INTERN Respiratory Rate - - Oxygen Saturation 97% 12/05/2021 4:06 PM HR INTERN Inhaled Oxygen Concentration - - Weight 97.5 kg (215 lb) 12/05/2021 4:06 PM HR INTERN Height - - Body Mass Index - - Plan of Treatment Health Maintenance Due Date Last Done Comments Colorectal Cancer Screening Colonoscopy (10 Years) 1976 Annual Physical 1979 Hepatitis C 1994 DTaP, Tdap and Td Vaccines ( 1 - Tdap) 1995 Hepatitis B Vaccines (1 of 3 - 19+ 3-dose series) 1995 COVID-19 Vaccine (2023-2 5 season) 2025 Meningococcal B Vaccine Aged Out No l onger eligible based on patient's age to complete this topic Meningococcal Vaccine Aged Out No chana dann eligible based on patient's age to complete this topic Pneumococcal Vaccine: Pediat rics (0 to 5 Years) and At-Risk Patients (6 to 49 Years) Aged Out No longer eligible b ased on patient's age to complete this topic RSV Immunizations Under 20 Months Aged Out No longer eligible based on patient's age to complete this topic Insurance [facility] Care Teams Security Patrol Officer Relationship Specialty Start Date End Date Catrachita Torres MD PCP - General FAMILY PRACTICE 11/09/21
[2025-06-23 12:50] LABS: Hematocrit 48.1 % (42.0-52.0); Hemoglobin 15.9 g/dL (14.0-18.0); Immature Granulocyte Percent A 0.3 % (0-0.5); Lymphocytes Absolute Auto 2.02 K/mm3 (0.9-3.2); Mean Corpuscular HGB Conc 33.1 g/dl (32-36); Mean Corpuscular Hemoglobin 29.0 pg (26-34); Mean Corpuscular Volume 87.6 fl (80-100); Nucleated Red Blood Cells Absolute Auto 0.000 K/mm3 (0.0-0.012); Nucleated Red Blood Cells Perc 0.0 % (0.0-0.2); Platelet Count Result 221 k/mm3 (150-375); Red Blood Count 5.49 M/mm3 (4.6-6.20); White Blood Count 6.3 K/mm3 (4.5-10.0)
[2025-06-23 13:00] LABS: Alanine Aminotransferase 37 U/L (6-50); Albumin Level 4.3 g/dL (3.5-5.1); Alkaline Phosphatase 79 U/L (38-126); Anion Gap 8 mmol/L (4-12); Aspartate Amino Transferase 45 U/L (17-59); Bilirubin,Total 0.5 mg/dL (0.2-1.3); Blood Urea Nitrogen 15 mg/dL (9-20); Calcium 9.2 mg/dL (8.4-10.2); Carbon Dioxide 28 mmol/L (22-30); Chloride 100 mmol/L (98-107); Cholesterol 242 mg/dL (0-200); Estimated Glomerular Filt Rate > 60; Glucose 92 mg/dL (65-110); HDL Direct 33 mg/dL; Potassium 4.2 mmol/L (3.4-5.0); Sodium 136 mmol/L (137-145); Total Protein 7.5 g/dL (6.3-8.2); Triglycerides 348 mg/dL (<150)
[2025-06-23 15:38] LABS: Thyroid Stimulating Hormone 0.874 uIU/mL (0.465-4.680)
== END 2025-06-23 07:53 | disposition home or self-care (01) ==
LOC: ANHGOSHLAB 07:52
PROVIDERS: PCP Family Medicine; Visit Provider Family Medicine
DX: Z00.00 Encounter for general adult medical examination without abnormal findings (principal)
CPT/HCPCS: 36415; 80053; 80061; 84443; 85025

== ENCOUNTER 2025-07-05 13:15 | Outpatient (CLI) | payer OTHER, SELFPAY ==
--- NOTE | ~2025-07-05 | XR_ITS ---
EXAMINATION: XR knee LT 3V, 07/05/2025 13:19 CDT HISTORY: L knee pain COMPARISON: No comparisons available. Findings: No acute fracture or malalignment. No significant degenerative changes. Soft tissues unremarkable. Impression: No acute fracture or malalignment. Reviewed, dictated and finalized at location A. Impression: No acute fracture or malalignment.
== END 2025-07-05 13:16 | disposition home or self-care (01) ==
LOC: MICIMG 13:16
PROVIDERS: PCP Family Medicine; Visit Provider Family Medicine
DX: M25.562 Pain in left knee (principal)
CPT/HCPCS: 73562